=== PATIENT | male | born 1950 | race Caucasian/White ===

== ENCOUNTER → 2023-11-26 | Outpatient (CLI) | payer MEDICARE, MEDICAID, OTHER | END | disposition home or self-care (01) | LOC: MRI 10:35 | PROVIDERS: ATTEND Internal Medicine | DX: S83.8X1A Sprain of other specified parts of right knee, initial encounter (principal); R60.9 Edema, unspecified; M25.461 Effusion, right knee; K00-K95 Diseases of the digestive system; X58.XXXA Exposure to other specified factors, initial encounter; Y93.89 Activity, other specified; Y92.89 Other specified places as the place of occurrence of the external cause; Y99.8 Other external cause status | CPT/HCPCS: 73721 ==

== ENCOUNTER 2023-12-10 08:45 | Outpatient (CLI) | payer MEDICARE, MEDICAID, OTHER | END 2023-12-10 23:59 | disposition home or self-care (01) | LOC: MRI 08:45 | PROVIDERS: ATTEND Specialist | DX: M79.605 Pain in left leg (principal); D75.89 Other specified diseases of blood and blood-forming organs | CPT/HCPCS: 73718 ==